=== PATIENT | female | born 1985 | race African-American/Black ===

== ENCOUNTER 2020-03-09 08:14 | Outpatient (CLI) | payer BC, SELFPAY ==
--- NOTE | ~2020-03-09 | XR_ITS ---
EXAMINATION: XR chest 2V DATE: 03/09/2020 08:42 INDICATION: Cough. TECHNIQUE: Frontal and lateral views of the chest were obtained. COMPARISON: None. FINDINGS: The chest demonstrates clear lungs without pneumonia, pleural effusion, or pneumothorax. Th e heart size is normal. IMPRESSION: 1. No acute cardiopulmonary disease. Reviewed, dictated and finalized at location B.
== END 2020-03-09 08:15 | disposition home or self-care (01) ==
LOC: ANHIMG 08:22
PROVIDERS: PCP Physician Assistant; Visit Provider Physician Assistant
DX: R05 Cough (principal)
CPT/HCPCS: 71046

== ENCOUNTER 2020-06-15 14:03 | Outpatient (CLI) | payer BC, SELFPAY ==
--- NOTE | ~2020-06-15 | CT_ITS ---
EXAMINATION: CT chest w con DATE: 06/15/2020 14:35 INDICATION: PERSISTENT COUGH TECHNIQUE: Computed tomography (CT) of the chest was performed with 75 mL Omnipaque-350 intravenous c ontrast. Additional 3D reconstructions utilizing coronal maximum intensity projection (MIP) were perf ormed. Automated exposure control and iterative reconstruction technique were employed. The dose-aquilino th product was 190.54 mGy-cm. COMPARISON: None FINDINGS: Very small region with a few small centrilobular groundglass nodules clustered in the lateral basilar segment of the right lower lobe consistent with endobronchial spread of disease. No other evident bridget ng disease, pulmonary edema or pleural effusion. Heart size is normal. No pericardial effusion. Thora cic aorta is normal in caliber with no dissection. No pulmonary embolism. No pathologically enlarged thoracic lymphadenopathy.. Regions of cortical scarring at the upper pole of the left kidney likely s equela of prior infection or less likely infarction. Mild thoracic spondylosis. IMPRESSION: 1. Small cluster of centrilobular groundglass nodules in the right lower lobe consistent with typical pattern of bronchiolitis/early pneumonia. Reviewed, dictated and finalized at location A. EMIC ADMINISTRATOR IMPRESSION: 1. Small cluster of centrilobular groundglass nodules in the right lower lobe c onsistent with typical pattern of bronchiolitis/early pneumonia.
[2020-06-15 14:31] LABS: Estimated Glomerular Filt Rate > 60
== END 2020-06-15 14:04 | disposition home or self-care (01) ==
PROVIDERS: PCP Physician Assistant; Visit Provider Physician Assistant
DX: R91.8 Other nonspecific abnormal finding of lung field (principal)
CPT/HCPCS: 71260; Q9967

== ENCOUNTER 2020-06-22 13:23 | Outpatient (CLI) | payer BC, SELFPAY ==
--- NOTE | 2020-06-26 09:18 | WPDPFTINT ---
PFT Interpretation PFT Interpretation: This PFT met all criteria for ATS standards and reproducibility FEV/FVC post bronchodilator 79% FEV1 95% FVC 89% TLC 87% RV 59% RV/TLC 21% DLCO 79% when adjusted for alveolar volume but not adjusted for hemoglobin Flow volume loops were normal. Impression:Other than a borderline diffusion capacity this a normal PFT. Clinical correlation is advised.
== END 2020-06-22 13:24 | disposition home or self-care (01) ==
PROVIDERS: PCP Physician Assistant; Visit Provider Physician Assistant
DX: R05 Cough (principal); R94.2 Abnormal results of pulmonary function studies
CPT/HCPCS: 94060; 94726; 94729

== ENCOUNTER → 2020-12-03 14:27 | Outpatient (CLI) | payer BC, SELFPAY ==
--- NOTE | ~2020-12-03 | CT_ITS ---
EXAMINATION: CT chest high resolution wo la DATE: 12/03/2020 14:52 INDICATION: Abnormal results and pulmonary functions. Decreased diffusion capacity. TECHNIQUE: Computed tomography (CT) of the chest was performed without intravenous contrast. The dose -length product was 220.70 mGy-cm. Automated exposure control and iterative reconstruction technique were employed. COMPARISON: CT dated 06/15/2020 FINDINGS: No thoracic lymphadenopathy. Heart size normal. No significant pleural or pericardial effus ion. Interval resolution of groundglass nodules in the right lower lobe on prior examination. No endo bronchial lesions. Mild thoracic spondylosis. No suspicious pulmonary nodules or masses. There is sca rring at the upper pole of the left kidney. IMPRESSION: 1. No acute cardiopulmonary disease. Reviewed, dictated and finalized at location A.
== END ==
PROVIDERS: Visit Provider Nurse Practitioner
DX: R94.2 Abnormal results of pulmonary function studies (principal)
CPT/HCPCS: 71250

== ENCOUNTER 2020-12-25 12:30 | Outpatient (CLI) | payer BC, SELFPAY ==
--- NOTE | 2020-12-31 12:06 | WPDMETH ---
Methacholine Procedure Perform Procedure Performed Methacholine Challenge Methacholine Challenge Methacholine Challenge: DOS: 12/25/2020 REQUESTING: VICKIE Henriquez REASON FOR TESTING: Asthma METHACHOLINE CHALLENGE This test was conducted per ATS guidelines. A previous study on Jun 22, 2020 showed normal spirometry, ling volumes, borderline low diffusion and a normal flow volume loop. The patient was exposed to sequentially increasing doses of methacholine in the usual manner. Level 1 - saline Level 2 - 0.025 mg Level 3 - 0.25 mg Level 4 - 2.5 mg Level 5 - 10 mg Level 6 - 25 mg The test was stopped after the final dose with no significant decrease in the FEV1. Flows returned to normal after bronchodilator was administered. IMPRESSION: This is a negative methacholine challenge. The best use for a methacholine challenge is to rule out asthma. Clinical correlation is advised. Lorenza Chan MD
== END 2020-12-25 12:31 | disposition home or self-care (01) ==
PROVIDERS: PCP Physician Assistant; Visit Provider Nurse Practitioner
DX: J45.909 Unspecified asthma, uncomplicated (principal)
CPT/HCPCS: 94070; J7674

== ENCOUNTER 2021-02-27 14:30 | Outpatient (RCR) | payer BC, SELFPAY ==
--- NOTE | 2021-02-19 16:12 | STOPEVAL ---
SPEECH THERAPY INITIAL EVALUATION (02-18-21) Thank you for referring Dmitriy Patterson to [facility].? The patient is scheduled to be seen for therapy? 1-2x/week for 4 weeks. Please review, sign, date and return this plan of care JOSELINE. I agree with and certify that the following plan of care is medically necessary. Referring Physician Date Attending Provider: July Escalante, C[employer] SAWYER- Evaluation Information Problem Diagnosis vocal cord dysfunction Onset approximately 6-8 months Additional Evaluation Detail continuous cough, possible reflux on Prilosec x2 per day, coughs/vomits up mucous constant clears throat, gets laryngitis easily, excess talking -- works in clerical. ? autoimmune disease to see medical anthropology director, ENT in 2 weeks , finished a steroid last, sleep apnea, to have a bronchoscopy in March. 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 intermittent hoarseness and even loss of voice. Diagnostic Tests X-Rays For This Problem Yes MRI For This Problem Yes Other Tests For This Problem Yes Previous Treatments Previous Treatments For This Problem No previous ST Prior Level of Function Activity Level (Last 3 Months) Occupation clerical Medications Home Meds (Include: OTC, RX, Vitamins, Prilosec prn; blood pressure Herbals, Dose, Route,and Frequency) medication as well Query Text:Home Med Entries Will No Longer Recall From Past Visits. Home Meds Must Be Re-entered With Each Visit. Home Setting Living Situation With Minor Child,With Spouse Prior Cognition/Communication Prior Communication Level No Impairment Prior Cognitive Function Able to Function Independently Voice Evaluation Voice History Provider Consulted Yes Provider Diagnosis vocal cord dysfunction Allergies Yes History of Trauma/Injury to the No Laryngeal Region Previous or Planned Laryngeal Surgery No Intelligibility Conversational Level Speech (% 100 Intelligibility) Respiration Counts on One Breath (#) 57 Length of Time for Counting (seconds) 17 Vowel Prolongation (seconds) 10 Length of Time for Sustaining /s/ ( 16 Seconds) Length of Time for Sustaining /z/ ( 17 seconds)
--- NOTE | 2021-03-13 11:36 | PCSTNOTE ---
Patient called & cancelled scheduled appointment this date due to having to close on her house; pt rescheduled
--- NOTE | 2021-03-21 08:30 | PCSTNOTE ---
Patient called & cancelled scheduled appointment on 03/19/21.
--- NOTE | 2021-03-28 15:20 | PCSTNOTE ---
SPEECH THERAPY DISCHARGE: Attending Provider: July Escalante, PLASTIC MACHINE OPERATOR- Patient:Dmitriy Patterson Date of :1985 Patient has not returned for any further treatments since 02/27/2021, therefore she will be discharged at this time. Patient?s initial visit was on 02/18/2021 14:30 and (he/she) had a total of 2 visits. The goals have been partially met. Thank you for referring this patient to [facility]. Please review, sign, date and return this discharge summary JOSELINE. I have been updated about the patient's current status and I agree with discharge from the above service at this time. Referring Physician Date
== END 2021-03-29 10:22 | disposition home or self-care (01) ==
LOC: ANHST 14:30
PROVIDERS: PCP Physician Assistant; Visit Provider Nurse Practitioner
DX: R49.9 Unspecified voice and resonance disorder (principal)
CPT/HCPCS: 92507; 92524

== ENCOUNTER 2022-10-29 13:15 | Outpatient (CLI) | payer BC, SELFPAY ==
--- NOTE | 2022-10-31 10:37 | WPDPFTINT ---
PFT Procedure Performed PFT Procedure Performed Spirometry with Pre/Post Bronchodilator Plethysmography (Lung Vol) Diffusing Cap (DLCO) Flow Vol Loop PFT Interpretation Lung volumes were measured with the body plethysmography method. Lung volumes are unremarkable. Spirometry showed normal expiratory flow rates and a normal FEV1 to FVC ratio of 80%. Following administration of a bronchodilator there was no significant increase in expiratory flow rates. Lung diffusion capacity is normal at 78% predicted. The flow-volume loop is unremarkable. In comparison to previous study in June of 2020, the post bronchodilator measurements of FVC and FEV1 are now greater by approximately 0.5 L each. Impression: Spirometry lung volumes, and lung diffusion capacity all within the normal range.
== END 2022-10-29 13:16 | disposition home or self-care (01) ==
LOC: ANHPFT 13:18
PROVIDERS: PCP Physician Assistant; Visit Provider Nurse Practitioner
DX: R05.3 Chronic cough (principal)
CPT/HCPCS: 94060; 94726; 94729

== ENCOUNTER 2023-06-19 10:55 | Outpatient (CLI) | payer BC, SELFPAY ==
--- NOTE | ~2023-06-19 | US_ITS ---
EXAMINATION: US retroperitoneal duplex ltd DATE: 06/19/2023 15:01 [employer] Y[employer]HT INDICATION: Accelerated hypertension. TECHNIQUE: Sonographic imaging of the kidneys was performed with a 3.5 MHz transducer. Retroperitone al duplex sonogram of the renal arteries also obtained. FINDINGS: No focal flow abnormalities are seen in the renal arteries on color Doppler. The peak syst olic velocity ranges of the right and left renal arteries and aorta are 154 cm per second, 140 cm per second, and 90 cm per second, respectively. The velocities and renal to aortic ratios are within nor mal limits. IMPRESSION: 1. No Doppler evidence of renal artery stenosis. Reviewed, dictated and finalized at location B. ER STEAM YACHT
--- NOTE | ~2023-06-19 | US_ITS ---
US renal BI 06/19/2023 11:35 Procedure: Realtime transabdominal ultrasound of the kidneys and bladder. Indication: Hypertension Comparison: No prior studies for comparison. Findings: Renal echotexture is normal bilaterally without hydronephrosis, contour deforming mass or r enal calculus. The right kidney measures 10.3 cm and left kidney measures 10.9 cm. Bladder within no rmal limits. Impression: 1: Unremarkable renal ultrasound. No stones, masses or hydronephrosis. Reviewed, dictated and finalized at location B. Y Impression: 1: Unremarkable renal ultrasound. No stones, masses or hydronephrosis.
== END 2023-06-19 10:56 ==
PROVIDERS: PCP Physician Assistant; Visit Provider Physician Assistant
DX: I10 Essential (primary) hypertension (principal)
CPT/HCPCS: 76775; 93976